=== PATIENT | female | born 1980 | race African-American/Black ===

== ENCOUNTER 2017-07-26 17:21 | Emergency (ER) | payer OTHER ==
[~2017-07-26 17:21] MED LIST: METFORMIN HCL500 MG PO; MOTRIN600 MG PO; MULTI VITAMINS1 TAB PO
[2017-07-26 18:25] VITALS: BP 136/86
[2017-07-26 19:25] LABS: ABSOLUTE BASOPHIL COUNT 0.1 /CUMM (0.0-0.2); ABSOLUTE EOSINOPHIL COUNT 0.1 /CUMM (0.0-0.7); ABSOLUTE GRANULOCYTE CT 3.4 /CUMM (1.4-6.5); ABSOLUTE LYMPH COUNT 2.4 /CUMM (1.2-3.4); ABSOLUTE MONOCYTE COUNT 0.5 /CUMM (0.10-0.60); BASOPHIL % 0.8 % (0.0-2.0); EOSINOPHIL % 2.1 % (0-5); GRANULOCYTE % 52.8 % (42.2-75.2); HEMATOCRIT 39.4 % (37-47); MEAN CORPUSCULAR HGB CONC 30.7 G/DL (33.0-37.0); MEAN CORPUSCULAR VOLUME 68.5 FL (81.0-99.0); MEAN PLATELET VOLUME 7.4 FL (7.4-10.4); PLATELET COUNT 441 /CUMM (130-400); RBC DISTRIBUTION WIDTH 15.4 % (11.5-14.5); RED BLOOD CELL CT 5.76 /CUMM (4.20-5.40); WHITE BLOOD CELL COUNT 6.4 /CUMM (4.8-10.8)
--- NOTE | 2017-07-26 20:35 | ED GENERAL ADULT ---
History of Present Illness General Chief Complaint: General Adult Stated Complaint: HIGH BLOOD SUGAR 300+? +N +DIZZY Source: patient, old records Exam Limitations: no limitations Vital Signs & Intake/Output Vital Signs & Intake/Output Vital Signs Date Time Temp Pulse Resp B/P B/P Pulse O2 O2 Flow FiO2 Mean Ox Delivery Rate 07/26 1825 98.2 97 16 136/86 98 Room Air Room Air ED Intake and Output 07/27 0000 07/26 1200 Intake Total 0 Output Total Balance 0 Intake, Oral 0 Allergies Coded Allergies: No Known Allergies (07/26/17) Reconcile Medications Ibuprofen (Motrin) 600 MG TAB 1 TAB PO TID PRN PAIN Metformin Hydrochloride (Metformin HCl) 500 MG TAB 1 TAB PO BID DIABETES ( Reported) Multivitamin (One Daily Multivitamin) 1 TAB TAB 1 TAB PO DAILY SUPPLEMENT ( Reported) Triage Note: PT TO TRIAGE FOR HIGH BLOOD SUGARS STARTING TODAY. AT HOME HER HIGH WAS 400. CURRENTLY 310. STATES SHE HAS HAD A SINGH AND NAUSEA ON AND OFF. Triage Nurses Notes Reviewed? yes Onset: Abrupt Duration: day(s): (1), better, constant Timing: recent history Injury Environment: home Severity: mild Severity Numbers: 4 No Modifying Factors: none Associated Symptoms: DENIES : No Patient currently breastfeeds: No HPI: 37-year-old female history of diabetes on Januvia and metformin presents to the ER after she states her blood sugar was high today as high as 400. She has been compliant with taking her medications. She is on insulin. No recent change in her medications. She states she was recently sick and was on azithromycin followed by Diflucan. Those symptoms have improved she reports to a frontal headache and nausea today which have both resolved. No abdominal pain chest pain shortness of breath fever chills. No urinary urgency dysuria hematuria (Bony Ayala) Past History Travel History Traveled to [place] past 21 day No Medical History Any Pertinent Medical History? see below for history Neurological: NONE EENT: NONE Cardiovascular: NONE Respiratory: NONE Gastrointestinal: NONE Hepatic: NONE Renal: NONE Musculoskeletal: NONE Psychiatric: NONE Endocrine: diabetes Blood Disorders: NONE SHOE STOCK ASSOCIATE/Reproductive: NONE Tetanus Vaccine: 04/13/15 Surgical History Surgical History: non-contributory Psychosocial History What is your primary language Indonesian Tobacco Use: Never used ETOH Use: denies use Illicit Drug Use: denies illicit drug use Family History Hx Contributory? No (Bony Ayala) Review of Systems Review of Systems Constitutional: Reports: see HPI. Comments Review of systems: See HPI, All other systems negative. Constitutional, no chills no fever, HEENT: no sore throat no congestio Cardiovascular: No chest pain Skin: no rashes, no change in skin Respiratory: No dyspnea no cough GI: No nausea no vomiting, no diarrhea, no bloating/constipation : No dysuria No hematuria, no frequency Muscle skeletal: No joint pain, no back pain, no neck pain Neurologic: , no headache Heme/endocrine: No bruising Immunology: No lymphadenopathy (Bony Ayala) Physical Exam Physical Exam General Appearance: well developed/nourished, no apparent distress, alert Comments: Well-developed well-nourished person in no acute distress HEENT: Normal EENT exam; PERRL, EOMI, HEAD is atraumatic. moist mucous membranes. Neck: Supple, normal range of motion Back: Full range of motion Cardiovascular: Regular rate and rhythms no murmurs Respiratory: No respiratory distress. Patient speaking in full complete sentences. Breath sounds clear to auscultation bilaterally: NO W/R/R Abdomen: Soft, nontender nondistended, no appreciable organomegaly. Normal bowel sounds. No rebound/guarding, Extremity: No edema, full range of motion of extremities Neuro: Alert oriented x3, motor sensory normal, There were no obvious focal neurologic abnormalities. Skin: No appreciable rash on exposed skin, skin is warm and dry. Psych: Mood and affect is normal, memory and judgment is normal. Core Measures ACS in differential dx? No CVA/TIA Diagnosis: No Sepsis Present: No Sepsis Focused Exam Completed? No (Bony Ayala) Progress Differential Diagnoses I considered the following diagnoses in my evaluation of the patient: DKA, HHS electrolyte abnormality dehydration Plan of Care: Orders Procedure Date/time Status URINE 07/26 1913 Complete URINALYSIS 07/26 1913 Complete FingerStick- Glucose 07/26 1731 Active TROPONIN LEVEL 07/26 1731 Complete SERUM OSMOLALITY 07/26 173 Complete COMPREHENSIVE METABOLIC PANEL 07/26 173 Complete CBC WITHOUT DIFFERENTIAL 07/26 1730 Complete ACETONE 07/26 1731 Complete Laboratory Tests 07/26/171914: Urine Color YEL, Urine Clarity CLEAR, Urine pH 6.0, Ur Specific [place] 1.025, Urine Protein NEG, Urine Ketones TRACE H, Urine Nitrite NEG, Urine Bilirubin NEG, Urine Urobilinogen 0.2, Ur Leukocyte Esterase NEG, Ur Microscopic SEDIMENT EXAMINED, Urine RBC RARE, Urine WBC RARE, Ur Epithelial Cells RARE, Urine Bacteria RARE H, Urine Hemoglobin TRACE-INTACT, Urine Glucose >=1000 H, Urine Test NEGATIVE 07/26/17 1900: CBC w Diff NO MAN DIFF REQ, RBC 5.76 H, MCV 68.5 L, MCH 21.0 L, MCHC 30.7 L, RDW 15.4 H, MPV 7.4, Gran % 52.8, Lymphocytes % 37.1, Monocytes % 7.2, Eosinophils % 2.1, Basophils % 0.8, Absolute Granulocytes 3.4, Absolute Lymphocytes 2.4, Absolute Monocytes 0.5, Absolute Eosinophils 0.1, Absolute Basophils 0.1 07/26/171844: Anion Gap 14, Estimated GFR > 60, BUN/Creatinine Ratio 16.7, Glucose 265 H, Serum Osmolality 290, Calcium 9.7, Total Bilirubin 0.6, AST 34, ALT 60 H, Alkaline Phosphatase 86, Troponin I < 0.01, Total Protein 7.2, Albumin 4.2, Globulin 3.0, Albumin/Globulin Ratio 1.4, Acetone Level NEGATIVE I discussed with the patient plan of care her blood sugars 265 here she's been without any complaints she denies dizziness lightheadedness nausea vomiting . She is tolerating by mouth here. Advise close follow-up with her primary care physician she feels comfortable plan return precautions were discussed at length Initial ED EKG: none (Bony Ayala) Departure Departure Time of Disposition: 2037 Disposition: HOME OR SELF CARE Condition: Stable Clinical Impression Primary Impression: Hyperglycemia Referrals: Lilly Joseph MD (PCP/Family) Additional Instructions: Follow up with your pmd this week for follow up on your blood sugars. return at anytime sooner with any concerns Departure Forms: Customer Survey General Discharge Information (Bony Ayala) PA/MEDIA CENTER ASSISTANT Co-Sign Statement Statement: ED Attending supervision documentation- [] I saw and evaluated the patient. I have also reviewed all the pertinent lab results and diagnostic results. I agree with the findings and the plan of care as documented in the PA's/MEDIA CENTER ASSISTANT's documentation. [X] I have reviewed the ED Record and agree with the PA's/MEDIA CENTER ASSISTANT's documentation. [] Additions or exceptions (if any) to the PAs/MEDIA CENTER ASSISTANT's note and plan are summarized below: [] (Deyvi MORENO,Nba Fields) Critical Care Note Critical Care Note Critical Care Time: non-applicable (Rupert MATSON,Bony)
== END 2017-07-26 20:45 ==
LOC: ERH 17:21
PROVIDERS: Physician Assistant Medical
DX: E11.65 Type 2 diabetes mellitus with hyperglycemia (principal)
CPT/HCPCS: 81001; 81025

== ENCOUNTER 2017-09-12 02:17 | Inpatient (IN) | payer OTHER ==
[~2017-09-12] VITALS: Ht 172.7 cm; Wt 137.2 kg
--- NOTE | 2017-09-12 09:58 | Admission Core Measures ---
Acute Coronary Syndrome (CM) ACS Core Measures Acute Coronary Syndrome Diagnosis No Congestive Heart Failure (NEW) CHF Core Measures Congestive Heart Failure Diagnosis No Cerebrovascular Accident (NEW) CVA Core Measures CVA/TIA Diagnosis No Venous Thromboembolism VTE Core Aisha (View Protocol) VTE Risk Factors No risk factors No Mechanical VTE Prophylaxis d/t N/A MechProphylax Ordered No VTE Pharm Prophylaxis d/t NA PharmProphylax ordered Problem List As ranked by this Provider includes Assessment & Plan 1. Morbid obesity 2. S/P laparoscopic sleeve gastrectomy HOME MEDS Home Med List No Known Home Medications
--- NOTE | 2017-09-12 10:07 | Patient Discharge Instructions ---
Discharge Instructions General Discharge Information You were seen/treated for: Morbid Obesity You had these procedures: Robotic/Laparoscopic Sleeve Gastrectomy Watch for these problems: Redness, swelling, unusual drainage, increased pain, nausea, vomiting, excessive diarrhea, or no bowel movements Do not soak the wound: Yes Daily wet to dry dressings: No No bath, but you may shower: Yes Other wound care: Ok to shower, let soapy water run over the incisions, don't scrub the incisions, glue will flake off on its own Special Instructions: Call the office with any other problems, questions or concerns Diet Continue normal diet: No Recommended Diet: Bariatric Additional DIET Information: Please follow your Bariatric Diet Program, see paperwork from the office for details Activity Full Activity/No Limits: No Activity Self Limited: Yes Pounds, do NOT lift more than: 10 Activity Limited to: Weight bear as tolerated Acute Coronary Syndrome Inclusion Criteria At DC or during hospital stay patient has or had the following: ACS DIAGNOSIS No Discharge Core Measures Meds if any: Prescribed or Continued at Discharge Meds if any: NOT Prescribed or Continued at Discharge Congestive Heart Failure Inclusion Criteria At DC or during hospital stay patient has or had the following: CHF DIAGNOSIS No Discharge Core Measures Meds if any: Prescribed or Continued at Discharge Meds if any: NOT Prescribed or Continued at Discharge Cerebrovascular accident Inclusion Criteria At DC or during hospital stay patient has or had the following: CVA/TIA Diagnosis No Discharge Core Measures Meds if any: Prescribed or Continued at Discharge Meds if any: NOT Prescribed or Continued at Discharge Venous thromboembolism Inclusion Criteria VTE Diagnosis No VTE Type NONE VTE Confirmed by (Test) NONE Discharge Core Measures - Per Current guidelines, there needs to be overlap - treatment for the first 5 days of Warfarin therapy. - If discharged on Warfarin prior to 5 days of - overlap therapy, the patient will need to be - assessed for post discharge needs including - *Post discharge parental anticoagulation - *Warfarin and/or parental anticoagulation education - *Follow up date to check INR post discharge At least 5 days overlap therapy as Inpatient No Meds if any: Prescribed or Continued at Discharge Note: Overlap Therapy is Warfarin and Anticoagulant Meds if any: NOT Prescribed or Continued at Discharge
--- NOTE | 2017-09-12 10:13 | Surg Short-stay <48hrs Dis Sum ---
See Addendum Visit Information Visit Dates Admission Date: 09/12/17 Discharge Date: 09/13/17 Surgical Short Stay DC Summary Admission Diagnosis: Morbid Obesity Final Diagnosis: same Procedure(s): Robotic/Laparoscopic Sleeve Gastrectomy Summary/Significant Findings: This is a 37 yo female who presented electively for Robotic/Laparoscopic Sleeve Gastrectomy. Patient underwent the aforementioned procedure without complication. Postoperative course was uncomplicated. POD#1 she underwent an UGI which was negative. She tolerated a Bariatric Stage 1 diet and was discharged on this. By time of discharge patient was ambulating, voiding and pain was well controlled with oral analgesia. Plan is for the patient to follow up with Dr. Armando as an outpatient in 1-2 weeks. Full details of her hospital course, operative report and discharge instructions can be found in her electronic chart. Condition at Discharge: Stable Discharge Disposition: home or self care Discharge instructions provided to patient/family: Yes Post discharge follow-up plan: as above Copies to: rT MORENO,Bobby Umaña
--- NOTE | 2017-09-12 10:17 | Operative Report ---
Operative/Inv Procedure Report Surgery Date: 09/12/17 Name of Procedure: Laparoscopic vertical sleeve gastrectomy with da Socrates robot Pre-Operative Diagnosis: Morbid obesity Post-Operative Diagnosis: Morbid obesity Estimated Blood Loss: less than 20 mL Surgeon/Heavy Equipment Operator: Tr MORENO,Bobby Villalba PA-C Anesthesia: general endotracheal tube, block IV Fluids: LR Implants: none Urine Output: na Drains: none Specimens: Portion of stomach Complications: None Condition: Stable to recovery room Operative Indication: Please see admitting history and physical Operative/Procedure Note Note: After informed consent and proper identification the patient was taken in the operating room and placed on the operating room table in the supine position. Sequential compression stockings were applied. Patient underwent general endotracheal anesthetic. Anesthesia performed a SAJAN block The abdomen was then prepped and draped in normal sterile fashion. Using a 8 mm incision just to the left of the umbilicus we inserted a 5 mm [employer] Visiport with 0 5 mm laparoscope entering the abdominal cavity without difficulty in insufflating with 14 mm CO2 pressure. We had excellent visualization. We placed additional trochars in the 12 mm trocar to the right of the midline we then changed the 5 mm trocar to an 8 mm trocar and lateral to that on the left side approximately 8 cm from each port we placed a additional 12 mm port and most laterally an 8 mm port. 4 ports total. We then placed a Jonathan liver retractor in the upper midline to retract the left lobe of the liver. We placed the patient in reverse Trendelenburg 16. We then docked the robot docking arm #2 as a camera port and targeted. We docked the remaining being ports 13 and 4. Poor one we placed a bipolar forceps in port 3 at vessel sealer port for a small grasper. We had anesthesia decompress the stomach with an orogastric tube and then remove it. Next we began to take down the vascular attachments along the greater curvature of the stomach opposite the angularis approximately 6 cm from the pylorus all the way up to the angle his we took the fundus of the stomach off the left aidee. There was no evidence of a hiatal hernia. Once this was completed we had anesthesia place of 40 [place] bougie into the stomach. First firing a green load 45 stapler through the #1 port we began the staple line opposite the angularis 6 cm from the pylorus. The second firing was a green load through the #3 port followed by additional green load. We then fired for 45 cm blue loads to completely transect the remnant stomach from the newly created sleeve we oversewed the first 10 cm from the angle his distally inverting the staple line with a running 20 V-block suture. There is no active bleeding removed all instruments removed the Jonathan liver retractor removed the remnant stomach and a #10 Endo Catch bag. We closed skin incisions with 4-0 Monocryl subcuticular stitches. Sponge and instrument counts were correct. The patient tolerated the procedure without complications was extubated and taken the recovery room in stable condition Findings: Slightly fatty but smooth liver Discharge Disposition: PACU
[2017-09-12 13:26] VITALS: BP 120/80
--- NOTE | 2017-09-12 17:01 | PN- General Surgery ---
See Addendum Subjective Subjective: Patient doing well since arriving to the floor. Tolerating kianna clears, ambulating and already voided. No further nausea since the PACU. Denies any other issues or complaints. No other concerns per nursing. Objective Vital Signs and I&Os Vital Signs Date Time Temp Pulse Resp B/P B/P Pulse O2 O2 Flow FiO2 Mean Ox Delivery Rate 09/12 1326 100 Room Air 09/12 1326 98.2 94 18 120/80 100 Room Air Intake & Output 09/12 1600 09/12 0800 09/12 0000 09/11 1600 09/11 0800 09/11 0000 Intake Total 130 Output Total 200 Balance -70 Intake, IV 100 Intake, Oral 30 Number 0 Bowel Movements Output, Urine 200 Patient 302 lb Weight Weight Reported by Patient Measurement Method Physical Exam: General: A, A, NAD Abdomen: Obese, soft, nt, nd, incisions c/d/i with glue in place, no surrounding edema, erythema or ecchymosis Extremities: No clubbing, cyanosis or edema Current Medications: Current Medications Sig/Nancy Start time Last Medication Dose Route Stop Time Status Admin Acetaminophen 1,000 MG Q6H 09/12 1000 AC 09/12 N/A 1 UNIT IV 09/13 0414 1404 Cefazolin Sodium 2,000 MG ONCE 09/12 0000 NR IV 09/12 2359 Dexamethasone 0 .STK-MED ONE 09/12 656 DC .ROUTE Dexamethasone 10 MG ONCE 09/12 0000 NR IV 09/12 2359 Diphenhydramine HCl 50 MG Q6P PRN 09/12 1000 AC IV Fentanyl Citrate 200 MCG .STK-MED ONE 09/12 0705 DC IM 09/12 0706 Heparin Sodium 5,000 UNIT Q8 09/12 1400 AC 09/12 (Porcine) SC 1405 Heparin Sodium 0 .STK-MED ONE 09/12 0657 DC (Porcine) .ROUTE Heparin Sodium 5,000 UNIT ONCE 09/12 0000 NR (Porcine) SC 09/12 2359 Hydrocodone Bitart/ 15 ML Q6P PRN 09/12 1015 AC Acetaminophen PO Insulin Human Regular 0 TIDAC/HS 09/12 1200 AC SC Ketorolac 15 MG Q6 09/12 1200 AC 09/12 Tromethamine IV 09/13 1201 1341 Lactated Ringer's 1,000 ML ONCE ONE 09/12 1000 AC 06/05 IV 09/12 1759 1350 Midazolam HCl 4 MG .STK-MED ONE 09/12 0706 DC IM 09/12 0707 Morphine Sulfate 2 MG Q3P PRN 09/12 1000 AC IV Morphine Sulfate 4 MG Q3P PRN 09/12 1000 AC IV Ondansetron HCl 4 MG Q6P PRN 09/12 1000 AC 09/12 IV 1348 Pantoprazole Sodium 40 MG DAILY 09/13 0900 AC IV Promethazine HCl 25 MG Q4P PRN 09/12 1015 AC IV 09/19 1014 Scopolamine HBr 0 .STK-MED ONE 09/12 0728 DC TOP Simethicone 80 MG TID 09/12 1400 AC PO Results Last 48 Hours of Labs: Laboratory Tests 09/12 06 Urines Urine Test NEGATIVE Assessment/Plan Assessment/Plan This is a 37 yo female who is POD #0 from Robotic/Laparoscopic Sleeve Gastrectomy Ambulate/IS GI/DVT Px PRN analgesia/antiemetics Insulin ss ordered in manriquez of home medications, anticipate dc home off of dm meds Bariatric Clears Likely dc home w/o services tomorrow Will d/w Dr. Hurt Problem List: 1. Morbid obesity 2. S/P laparoscopic sleeve gastrectomy Core Measures Venous Thromboembolism VTE Risk Factors No risk factors No Mechanical VTE Prophylaxis d/t N/A MechProphylax Ordered No VTE Pharm Prophylaxis d/t NA PharmProphylax ordered
[2017-09-12 22:03] VITALS: BP 132/710
[2017-09-13 06:42] VITALS: BP 130/86
--- NOTE | 2017-09-13 07:21 | PN- Bariatrics ---
See Addendum Subjective Subjective: Reports nausea has resolved. NPO since midnight for upper gi study this morning. Ambulating without difficulty. Slight dizziness when out of bed yesterday, but better today. No shortness of breath. No chest pains. Some gas pains, but pain improves with hycet. No flatus or bm yet. Objective Vital Signs and I&Os Vital Signs Date Time Temp Pulse Resp B/P B/P Pulse O2 O2 Flow FiO2 Mean Ox Delivery Rate 09/13 0642 98.0 99 20 130/86 98 Room Air 09/12 2203 98.8 72 20 132/710 98 Room Air 09/12 1326 100 Room Air 09/12 1326 98.2 94 18 120/80 100 Room Air Intake & Output 09/13 0800 09/13 0000 09/12 1600 09/12 0800 09/12 0000 09/11 1600 Intake Total 0 1460 130 Output Total 200 1000 200 Balance -200 460 -70 Intake, IV 950 100 Intake, Oral 0 510 30 Number 0 0 Bowel Movements Output, Urine 200 1000 200 Patient 302 lb Weight Weight Reported by Patient Measurement Method Physical Exam: General - alert & oriented x 3. comfortable. no acute distress. Lungs - clear bilaterally. no w/r/r. Cardiac - s1s2. reg. Abdomen - soft. incisions approximated with skin glue. expected dejuan-incisional tenderness. no drains. Extremities - warm bilaterally. no c/c/e. calves soft and nontender b/l. Current Medications: Current Medications Sig/Nancy Start time Last Medication Dose Route Stop Time Status Admin Acetaminophen 1,000 MG Q6H 09/12 1000 DC 09/13 N/A 1 UNIT IV 09/13 0414 0327 Cefazolin Sodium 2,000 MG ONCE 09/12 0000 DC IV 09/12 2359 Dexamethasone 10 MG ONCE 09/12 0000 DC IV 09/12 2359 Diphenhydramine HCl 50 MG Q6P PRN 09/12 1000 AC IV Heparin Sodium 5,000 UNIT Q8 09/12 1400 AC 09/12 (Porcine) SC 2105 Heparin Sodium 5,000 UNIT ONCE 09/12 0000 DC (Porcine) SC 09/12 2359 Hydrocodone Bitart/ 15 ML Q6P PRN 09/12 1015 AC 09/12 Acetaminophen PO 2248 Hydromorphone HCl 2 MG .STK-MED ONE 09/12 1221 DC IM 09/12 1222 Hydromorphone HCl 2 MG .STK-MED ONE 09/12 1102 DC IM 09/12 1103 Hydromorphone HCl 2 MG .STK-MED ONE 09/12 1027 DC IM 09/12 1028 Insulin Human Regular 0 TIDAC/HS 09/12 1200 AC 09/12 SC 1659 Ketorolac 15 MG Q6 09/12 1200 AC 09/13 Tromethamine IV 09/13 1201 0523 Lactated Ringer's 1,000 ML CONTINOUS INFUSION 09/13 0730 UNVr IV Lactated Ringer's 1,000 ML ONCE ONE 09/12 1000 DC 09/12 IV 09/12 1759 1350 Morphine Sulfate 2 MG Q3P PRN 09/12 1000 AC IV Morphine Sulfate 4 MG Q3P PRN 09/12 1000 AC IV Ondansetron HCl 4 MG Q6P PRN 09/12 1000 AC 09/12 IV 1348 Pantoprazole Sodium 40 MG DAILY 09/13 0900 AC IV Promethazine HCl 25 MG Q4P PRN 09/12 1015 AC IV 09/19 1014 Scopolamine HBr 0 .STK-MED ONE 09/12 0728 DC TOP Simethicone 80 MG TID 09/12 1400 AC 09/12 PO 2014 Results Last 48 Hours of Labs: Laboratory Tests 09/13 09/12 0650 0620 Chemistry Sodium Pending Potassium Pending Chloride Pending Carbon Dioxide Pending Anion Gap Pending BUN Pending Creatinine Pending BUN/Creatinine Ratio Pending Hematology CBC w Diff Pending WBC Pending RBC Pending Hgb Pending Hct Pending MCV Pending MCH Pending MCHC Pending RDW Pending Plt Count Pending MPV Pending Urines Urine Test NEGATIVE Assessment/Plan Assessment/Plan This 37 year old female is POD#1 s/p laparoscopic vertical sleeve gastrectomy with da Socrates robotic for hx morbid obesity currently npo / ivf pain controlled with hycet / toradol oob/ambulating without difficulty hep sc - dvt ppx protonix - gi ppx f/u labs f/u upper gi study resume stg 1 diet if ugi neg for leak/obstruction d/c planning, ?later today vs tomorrow if tolerating diet will d/w Core Measures Venous Thromboembolism VTE Risk Factors No risk factors No Mechanical VTE Prophylaxis d/t N/A MechProphylax Ordered No VTE Pharm Prophylaxis d/t NA PharmProphylax ordered
[2017-09-13] MEDS ORDERED: HYCET 7.5 MG-3473 ML PO (07:27)
[2017-09-13] MEDS ORDERED: PROTONIX40 M3 PO (07:27)
[2017-09-13 08:07] LABS: ABSOLUTE BASOPHIL COUNT 0 /CUMM (0.0-0.2); ABSOLUTE EOSINOPHIL COUNT 0 /CUMM (0.0-0.7); ABSOLUTE GRANULOCYTE CT 4.5 /CUMM (1.4-6.5); ABSOLUTE LYMPH COUNT 1.7 /CUMM (1.2-3.4); ABSOLUTE MONOCYTE COUNT 0.6 /CUMM (0.10-0.60); BASOPHIL % 0.6 % (0.0-2.0); EOSINOPHIL % 0.2 % (0-5); GRANULOCYTE % 65.7 % (42.2-75.2); HEMATOCRIT 32.3 % (37-47); MEAN CORPUSCULAR HGB 22.2 PG (27.0-31.0); MEAN CORPUSCULAR HGB CONC 32.2 G/DL (33.0-37.0); MEAN PLATELET VOLUME 7.4 FL (7.4-10.4); PLATELET COUNT 342 /CUMM (130-400); RBC DISTRIBUTION WIDTH 16.5 % (11.5-14.5); RED BLOOD CELL CT 4.69 /CUMM (4.20-5.40); WHITE BLOOD CELL COUNT 6.9 /CUMM (4.8-10.8)
--- NOTE | 2017-09-13 14:27 | RADIOLOGY REPORT ---
EXAMINATION: FL SINGLE-CONTRAST UPPER GI SERIES WITH KUB CLINICAL INFORMATION: Status post sleeve gastrectomy. Assess for leak or obstruction. COMPARISON: None. TECHNIQUE: Examination performed with oral Gastroview 30 mL. Multiple fluoroscopic loop images and spot radiographs were obtained. FINDINGS: Preliminary AP radiograph demonstrates a left upper quadrant staple line related to sleeve gastrectomy. There is a moderate sigmoid scoliosis, convex to the right in the thoracic region and toward the left in the lumbar region. There is sclerosis at the bilateral sacroiliac joints, more extensive on the right. The patient ingested water-soluble contrast without difficulty. There is no evidence of distal esophageal dilatation and contrast passes freely into the stomach. The proximal and mid stomach have a tubular configuration related to the sleeve gastrectomy. No gastroesophageal reflux is demonstrated. There is no evidence of leak or obstruction. There is free flow of contrast through the pylorus into the duodenal sweep. FLUOROSCOPY TIME: 1 minute and 3 seconds. Number of images: 11 IMPRESSION: 1. Upper GI series status post status post sleeve gastrectomy demonstrates no evidence of leak or obstruction. No gastroesophageal reflux was demonstrated.
[2017-09-13 14:52] VITALS: BP 136/74
[2017-09-13 23:20] VITALS: BP 113/60
[2017-09-14 06:40] VITALS: BP 133/85
--- NOTE | 2017-09-14 07:36 | PN- General Surgery ---
Subjective Subjective: Patient doing well. Reports some abdominal discomfort epigastric which is well controlled with current analgesia. Tolerating kianna clears, ambulating and voiding without any difficulty. No further nausea since the PACU. Denies any other issues or complaints. No other concerns per nursing. Objective Vital Signs and I&Os Vital Signs Date Time Temp Pulse Resp B/P B/P Pulse O2 O2 Flow FiO2 Mean Ox Delivery Rate 09/14 0640 98.3 90 20 133/85 99 Room Air 09/13 2320 98.3 78 20 113/60 99 Room Air 09/13 1452 98.9 80 18 136/74 99 Room Air 09/13 1400 Room Air Room Air Intake & Output 09/14 0809/14 0000 09/13 1600 09/13 0800 09/13 0000 09/12 1600 Intake Total 1120 120 700 0 1460 130 Output Total 6997 937 1038 200 Balance 1120 120 -650 -200 460 -70 Intake, IV 1000 450 950 100 Intake, Oral 120 120 250 0 510 30 Number 0 0 Bowel Movements Output, Urine 2978 581 9632 200 Patient 303 lb 302 lb Weight Weight Reported by Patient Measurement Method Physical Exam: General: A, A, NAD Abdomen: Obese, soft, nt, nd, incisions c/d/i with glue in place, no surrounding edema, erythema or ecchymosis Extremities: No clubbing, cyanosis or edema Current Medications: Current Medications Sig/Nancy Start time Last Medication Dose Route Stop Time Status Admin Diphenhydramine HCl 50 MG Q6P PRN 09/12 1000 AC IV Heparin Sodium 5,000 UNIT Q8 09/12 1400 AC 09/13 (Porcine) SC 2118 Hydrocodone Bitart/ 15 ML Q6P PRN 09/12 1015 AC 09/14 Acetaminophen PO 0733 Insulin Human Regular 2 UNITS .STK-MED ONE 09/13 2115 DC IV 09/13 2116 Insulin Human Regular 2 UNITS .STK-MED ONE 09/13 1135 DC IV 09/13 1136 Insulin Human Regular 0 TIDAC/HS 09/12 1200 AC 09/13 SC 2119 Ketorolac 15 MG Q6 09/12 1200 DC 09/13 Tromethamine IV 09/13 1201 1125 Lactated Ringer's 1,000 ML CONTINOUS INFUSION 09/13 0730 AC 09/14 IV 0004 Morphine Sulfate 2 MG Q3P PRN 09/12 1000 AC IV Morphine Sulfate 4 MG Q3P PRN 09/12 1000 AC IV Ondansetron HCl 4 MG Q6P PRN 09/12 1000 AC 09/13 IV 1012 Pantoprazole Sodium 40 MG DAILY 09/13 0900 AC 09/13 IV 0730 Patient Medication 1 ED ONE ONE 09/13 1145 DC 09/13 [facility] ED 09/13 1146 1723 Promethazine HCl 25 MG Q4P PRN 09/12 1015 AC IV 09/19 1014 Simethicone 80 MG TID 09/12 1400 AC 09/13 PO 2118 Results Last 48 Hours of Labs: Laboratory Tests 09/13 0650 Chemistry Sodium (137 - 145 mmol/L) 141 Potassium (3.5 - 5.1 mmol/L) 3.8 Chloride (98 - 107 mmol/L) 107 Carbon Dioxide (22 - 30 mmol/L) 24 Anion Gap (5 - 16) 10 BUN (7 - 17 mg/dL) 4 L Creatinine (0.5 - 1.0 mg/dL) 0.6 Estimated GFR (>60 ml/min) > 60 BUN/Creatinine Ratio (7 - 25 %) 6.7 L Hematology CBC w Diff NO MAN DIFF REQ WBC (4.8 - 10.8 /CUMM) 6.9 RBC (4.20 - 5.40 /CUMM) 4.69 Hgb (12.0 - 16.0 G/DL) 10.4 L Hct (37 - 47 %) 32.3 L MCV (81.0 - 99.0 FL) 69.0 L MCH (27.0 - 31.0 PG) 22.2 L MCHC (33.0 - 37.0 G/DL) 32.2 L RDW (11.5 - 14.5 %) 16.5 H Plt Count (130 - 400 /CUMM) 342 MPV (7.4 - 10.4 FL) 7.4 Gran % (42.2 - 75.2 %) 65.7 Lymphocytes % (20.5 - 51.1 %) 25.1 Monocytes % (1.7 - 9.3 %) 8.4 Eosinophils % (0 - 5 %) 0.2 Basophils % (0.0 - 2.0 %) 0.6 Absolute Granulocytes (1.4 - 6.5 /CUMM) 4.5 Absolute Lymphocytes (1.2 - 3.4 /CUMM) 1.7 Absolute Monocytes (0.10 - 0.60 /CUMM) 0.6 Absolute Eosinophils (0.0 - 0.7 /CUMM) 0 Absolute Basophils (0.0 - 0.2 /CUMM) 0 Recent Imaging Studies: UGI 09/13/17:Upper GI series status post status post sleeve gastrectomy demonstrates no evidence of leak or obstruction. No gastroesophageal reflux was demonstrated. Assessment/Plan Assessment/Plan This is a 37 yo female who is POD #2 from Robotic/Laparoscopic Sleeve Gastrectomy Ambulate/IS GI/DVT Px PRN analgesia/antiemetics Insulin ss ordered in [place] of home medications, home off of dm meds Continue Bariatric Clears D/C home w/o services today Patient seen and examined w/ Dr. Armando who is in agreement with the plan of care Problem List: 1. Morbid obesity 2. S/P laparoscopic sleeve gastrectomy Core Measures Venous Thromboembolism VTE Risk Factors No risk factors No Mechanical VTE Prophylaxis d/t N/A MechProphylax Ordered No VTE Pharm Prophylaxis d/t NA PharmProphylax ordered
== END 2017-09-14 12:55 | DRG 403 ==
LOC: SDA 02:17 → 2NB 02:17 → ENRESERV 12:48 → ENTRNSPT 13:06 → EDTRNSPT 13:16 → EDTRNSPTSTS 13:16 → 2NB 13:26 → CMPTRNSPT 13:41 → ENPENDDIS 09-14 07:48 → 2NB 09-14 12:55
PROVIDERS: Physician Assistant Surgical
PROC: 0DB64Z3 Excision of Stomach, Percutaneous Endoscopic Approach, Vertical (ICD-10-PCS; principal; 2017-09-12)
PROC: 8E0W4CZ Robotic Assisted Procedure of Trunk Region, Percutaneous Endoscopic Approach (ICD-10-PCS; principal; 2017-09-12)
DX: E66.01 Morbid (severe) obesity due to excess calories (principal); Z68.42 Body mass index [BMI] 45.0-49.9, adult; E11.9 Type 2 diabetes mellitus without complications; Z79.84 Long term (current) use of oral hypoglycemic drugs; Z88.5 Allergy status to narcotic agent
CPT/HCPCS: 2NBP; 36415; 36592; 74240; 81025; 82436; 88307; C1781; J0131; J0690; J1100; J1200; J1644; J1815; J2405; J2550; J3490; J7120